=== PATIENT | female | born 1995 | race Caucasian/White ===

== ENCOUNTER → 2017-05-02 | Outpatient (CLI) | payer OTHER | END | disposition home or self-care (01) | LOC: C.LABSPEC 17:31 | PROVIDERS: ATTEND Obstetrics & Gynecology | DX: Z11.3 Encounter for screening for infections with a predominantly sexual mode of transmission (principal) ==

== ENCOUNTER → 2017-05-02 | Outpatient (CLI) | payer OTHER | END | disposition home or self-care (01) | LOC: C.PAPS 09:31 | PROVIDERS: ATTEND Obstetrics & Gynecology | DX: Z01.419 Encounter for gynecological examination (general) (routine) without abnormal findings (principal) ==

== ENCOUNTER 2022-08-27 06:32 | Inpatient (IN) ==
[~2022-08-27 06:32] MED LIST: CITRIC ACID/SODIUM CITRATE 15 ML UDC PO SCH; ceFAZolin 2000MG 2,000 MG/15 ML SYR IV SCH
[2022-08-27] MEDS ORDERED: LACTATED RINGER'S 1,000 ML IV SCH ×2 (08:00→10:24)
--- NOTE | 2022-08-27 08:03 | History & Physical Report ---
Date of Service August 27, 2022 Assessment & Plan (1) Supervision of normal first : Plan: Admit. Labs. EFM/toco. IV. Discussed recommendation for delivery by due to breech. Reviewed consent, informed consent obtained. Will proceed to OR. (2) Breech presentation: History of Present Illness Chief Complaint: contractions Primary Care Provider: ADAM Low 27yo @ 39 04/28, contractions since earlier this morning. and Delivery Plans FOB mother with probably muscular dystrophy--FOB tested negative for that gene. covid vaccine--pfizer x 2 , recommend booster Allergies Allergy/AdvReac Type Severity Reaction Status Date / Time No Known Drug Allergies Allergy Unknown Verified 08/27/22 07:19 Home Medications Medication Instructions Recorded Confirmed Type prenat.vits,ramon,nsm-[id number]-laynf 1 tab PO DAILY 01/29/22 08/27/22 History cetirizine 10 mg tablet 10 mg PO DAILY 08/27/22 08/27/22 History Patient History Medical History (Updated 08/27/22 @ 08:03 by Sofiya Carpenter DO) Varicella vaccination Surgical History History of wisdom tooth extraction Family History Grandfather (Maternal) Pancreatic cancer Hypertension Grandmother (Maternal) Lymphoma Hypertension Grandfather (Paternal) Diabetes Mother Hypertension Denies family history of Ovarian cancer Breast cancer Colorectal cancer Social History (Updated 01/29/22 @ 14:13 by Rocio Stephens) Smoking Status: Never smoker Do You Dip or Chew Tobacco: No; Hx Alcohol Use: No Hx Substance Use: No Preferred Language: Venezuelan Communication Ability: Effective Cable Strander Required: No Beliefs That Will Affect Care: None marital status: marital status details: Yoseph Gandhi (28) [phone] Current Living Situation: Spouse Current Living Situation Comment: current occupational status: employed 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 Constitutional: WD/WN, vitals as above Respiratory: normal respiratory effort, lungs clear to auscultation no respiratory distress Cardiovascular: Rate/Rhythm: regular rate and regular rhythm Gastrointestinal (Abdomen): Inspection/Auscultation: abdomen normal to inspection Percussion/Palpation: abdomen soft; abdomen nontender Gravid. No s/s chorio or abruption. Skin: no rashes, warm and dry Psychiatric: A+Ox3, euthymic affect Results & Data Vital Signs (Past 12 Hours) Vital Signs Temp Pulse Resp BP 08/27/22 07:00 36.6 C 20 08/27/22 06:53 127 H 135/88 08/27/22 06:48 16 08/27/22 06:48 36.6 C 16 08/27/22 06:49 113 H 137/91 Code Status & VTE Plan VTE Prophylaxis Plan VTE Prophylaxis will be ordered: Yes Coding Level of Care Code None Diagnoses Supervision of normal first Z34.00 Breech presentation O32.1XX0
--- NOTE | 2022-08-27 08:04 | Anesthesiology Consultation ---
Date of Service August 27, 2022 Assessment & Plan Chart Review Chart Review: Acceptable Risk for Surgery and Patient NOT seen in Pre Admission Testing awaiting platelet count Consults Requested none History Surgery Operation Date: 08/27/22 08:15 Proposed Procedures p Section in LD - Sofiya KatzDO bhavin Height/Weight Height: 5 ft 7 in Weight: 82.554 kg Allergies Allergy/AdvReac Type Severity Reaction Status Date / Time No Known Drug Allergies Allergy Unknown Verified 08/27/22 07:19 Medications Home Medications Medication Instructions Recorded Confirmed Last Taken prenat.vits,ramon,pus-ahvs-ajptw 1 tab PO DAILY 01/29/22 08/27/22 08/26/22 08:00 cetirizine 10 mg tablet 10 mg PO DAILY 08/27/22 08/27/22 08/26/22 08:00 Active Medications Generic Name Dose Route Start Last Admin Trade Name Freq PRN Reason Stop Dose Admin Cefazolin Sodium 2,000 mg in 15 mls @ 3.75 mls/min 08/27/22 06:00 08/27/22 08:24 Ancef 2000mg IV 08/28/22 05:59 3.75 mls/min PREOP TIM Administration Protocol Lactated Ringer's 1,000 mls @ 999 mls/hr 08/27/22 08:00 08/27/22 08:00 Lr IV 08/27/22 09:00 999 mls/hr .Q1H1M TIM Administration Past Medical History Medical History Varicella vaccination Exercise / Class Metabolic Activity II 4-5 Yardwork/Stairs/Walk up hill Past Family History Family History Grandfather (Maternal) Pancreatic cancer Hypertension Grandmother (Maternal) Lymphoma Hypertension Grandfather (Paternal) Diabetes Mother Hypertension Denies family history of Ovarian cancer Breast cancer Colorectal cancer Past Surgical History Surgical History History of wisdom tooth extraction Past Anesthesia History No Hx of Anesthesia Complications and No Family Hx of Anesthesia Complications Social History Smoking Status: Never smoker Do You Dip or Chew Tobacco: No Hx Alcohol Use: No Hx Substance Use: No Physical Exam Vital Signs Last Vital Signs Temp 36.6 C 08/27/22 07:00 Pulse 127 H 08/27/22 06:53 Resp 20 08/27/22 07:00 BP 135/88 08/27/22 06:53
[2022-08-27] MEDS ORDERED: MoRPHine SULFATE PF 1 MG/ML 10 ML AMP/VIAL ONE (08:14)
[2022-08-27] MEDS ORDERED: fentaNYL citrate PF 100 MCG/2 ML VIAL ONE (08:14)
[2022-08-27] MEDS ORDERED: OXYTOCIN 10 UNITS/ML 10ML VIAL ONE (08:14)
[2022-08-27] MEDS ORDERED: ONDANSETRON INJ 2 MG/ML 2 ML VIAL ONE (08:14)
[2022-08-27] MEDS ORDERED: PHENYLEPHRINE 100MCG/ML 5ML SYR ONE (08:14)
[2022-08-27 08:28] LABS: Basophils # (auto) 0.05 K/uL (0-0.2); Basophils % (auto) 0.4 %; Hematocrit (blood only) 37.5 % (37.0-47.0); Hemoglobin 12.8 g/dl (12.0-16.0); Immature Granulocytes # (auto) 0.14 K/uL (0.01-0.20); Immature Granulocytes % (auto) 1.1 %; Lymphocytes # (auto) 1.23 K/uL (1.2-3.4); Lymphocytes % (auto) 9.4 %; Mean Corpuscular Hemoglobin 29.9 pg (25.0-34.0); Mean Corpuscular Hgb Conc 34.1 g/dL (32.0-36.0); Mean Corpuscular Volume 87.6 fL (80.0-100.0); Mean Platelet Volume 11.9 fL (9.4-12.4); Monocytes % (auto) 3.1 %; Neutrophils # (auto) 11.22 K/uL (1.40-6.50); Platelet Count 176 K/uL (130-400); RDW Coefficient of Variation 13.9 % (11.5-14.5); RDW Standard Deviation 44.1 fL (36.4-46.3); Red Blood Count 4.28 M/uL (4.20-5.40); White Blood Count 13.04 K/ul (4.8-10.8)
[2022-08-27] MEDS ORDERED: NALOXONE HCL 1 MG in SODIUM CHLORIDE 0.9% 1000ML 1,000 ML IV PRN (08:49)
[2022-08-27] MEDS ORDERED: NALBUPHINE HCL INJ 10 MG/ML AMP IV PRN (08:49)
[2022-08-27] MEDS ORDERED: NALOXONE HCL 0.08 MG in SYRINGE 1.8 ML IV PRN (08:49)
[2022-08-27] MEDS ORDERED: diphenhydrAMINE 50 MG/ML VIAL IV PRN (08:49)
[2022-08-27] MEDS ORDERED: LACTATED RINGER'S 500 ML IV PRN (08:49)
[2022-08-27] MEDS ORDERED: ONDANSETRON INJ 2 MG/ML 2 ML VIAL IV PRN ×2 (08:49→10:24)
[2022-08-27] MEDS ORDERED: MoRPHine SULFATE PF 1 MG/ML 10 ML AMP/VIAL INT SPINAL ONE (08:49)
[2022-08-27] MEDS ORDERED: MoRPHine SULFATE 2 MG/ML CARP IV PRN (08:49)
[2022-08-27] MEDS ORDERED: NALOXONE HCL 0.4 MG/1 ML VIAL/CARP IV PRN (08:49)
[2022-08-27] MEDS ORDERED: ePHEDrine sulfate 50 MG/ML AMP IV PRN (08:49)
[2022-08-27] MEDS ORDERED: SODIUM CHLORIDE 0.9% 1000ML 1,000 ML IV SCH (09:00)
[2022-08-27] MEDS ORDERED: NO NARCOTICS OR SEDATIVES SCH (09:00)
[2022-08-27] MEDS ORDERED: DC INTRASPINAL MORPHINE SCH (09:00)
--- NOTE | 2022-08-27 09:48 | Anesthesiology Progress Note ---
Date of Service August 27, 2022 Anesthesia Post Procedure Vital Signs Vital Signs: Temp Pulse Resp BP Pulse Ox 08/27/22 07:00 36.6 C 20 08/27/22 09:43 100 08/27/22 09:43 101 H 08/27/22 09:44 105 H 08/27/22 09:44 136/97 08/27/22 06:53 127 H 135/88 08/27/22 06:48 16 08/27/22 06:48 36.6 C 16 08/27/22 06:49 113 H 137/91 Transfer of Care Handoff Completed per policy Notes Mental Status: alert / awake / arousable and participated in evaluation Patient Amnestic to Procedure: No Nausea / Vomiting: adequately controlled Pain: adequately controlled Airway Patency, RR, SpO2: stable & adequate BP & HR: stable & adequate Hydration State: stable & adequate Neuraxial Anesthesia: was administered and sensory block is resolving Anesthetic Complications: no major complications apparent and Pt Satisfied with anesthetic care
--- NOTE | 2022-08-27 09:53 | Operative Report ---
PG Post Operative Report Pre & Post Diagnosis Operation Date: 08/27/22 08:30 Pre-Op Diagnosis: PRIMARY SECTION BREECH PRESENTATION IN LABOR Post-Op Diagnosis: PRIMARY SECTION BREECH PRESENTATION IN LABOR I identified the patient and participated in the time-out.: Yes Procedure Operation Date: 08/27/22 08:30 Actual Procedures Primary low transverse Section in LD; delivery of live female at 0857 - Sofiya Carpenter DO Surgeon Sofiya Carpenter DO Robotic Toy Inventor Aaron Diane MD Estimated Blood Loss 500 Findings Consistent with Post-Op Diagnosis Viable female , Ketan breech position, Apgars 8/9. Weight 7lbs 0oz. Normal appearing uterus, fallopian tubes, ovaries. Specimens placenta, cord blood, cord blood for karyotype Drains tay clear yellow Anesthesia Type Spinal Complications none Disposition Accompanied Patient To Recovery: No Disposition: L&D Indications 27yo @ 39 1, spontaneous labor, was found to be breech presentation on arrival. Description of Procedure The patient was seen in her labor and delivery room, risks benefits and alternatives to surgery were reviewed. Informed consent obtained. Questions were answered. She was taken to the operating room, spinal anesthesia was administered. She was then prepared and draped in the usual sterile fashion in the supine position with a leftward tilt. Timeout was confirmed. A Pfannenstiel skin incision was made with a scalpel, and carried through to the underlying layer of fascia. Fascia was nicked at midline, and this incision was extended bilaterally. The superior aspect of the fascial incision was grasped with Karrie clamps x2, elevated off the underlying rectus abdominis muscles, and dissected sharply and bluntly. In similar fashion, the inferior aspect of the fascial incision was dissected. The rectus abdominis muscles were , and the peritoneum was entered bluntly digitally. This was extended bilaterally. The bladder flap was taken down carefully using Metzenbaum scissors. Using a new scalpel, a low transverse uterine incision was created. Clear amniotic fluid noted. The was delivered from a breech presentation. One leg delivered, followed by other leg, then abdomen. Bilateral arms swept medially for delivery, and head delivered easily. Spontaneous cry on the field. The cord was doubly clamped and cut, and the was handed off to the waiting assembly cleaner. A segment was retained for cord gases. Cord blood was obtained - 2 samples, one standard sample, one for karyotype testing. The placenta was delivered spontaneously intact. The uterus was exteriorized, and cleared of all clots and debris. The hysterotomy incision was reapproximated using 0 Vicryl in a running locked stitch. A second layer of the same suture was used to imbricate the incision. Posterior uterus was evaluated and normal. The uterus was returned to the abdomen, and gutters were cleared of clots and debris. Excellent hemostasis was observed. The fascial incision was reapproximated using 0 Vicryl in a running stitch. The subcutaneous tissue was irrigated, and reapproximated using 2-0 plain gut in a running stitch. The skin was reapproximated using 4-0 Vicryl in a running subcuticular stitch. Steri-Strips and a bandage were applied. The patient tolerated the procedure well, and will be taken to the recovery area in stable and good condition. I attest to the content of the Intraoperative Record and any orders documented therein. Any exceptions are noted below. OB Procedure Charges 53930
[2022-08-27] MEDS ORDERED: BENZOCAINE 20% AER SPR 82.5 GM CAN EXT PRN (10:24)
[2022-08-27] MEDS ORDERED: HYDROCORTISONE ACETATE 25 MG SUPP PR PRN (10:24)
[2022-08-27] MEDS ORDERED: DIPHTHERIA/TETANUS/PERTUSSIS 0.5mL SYR/VIAL (Age 7+yrs) IM ONE (10:24)
[2022-08-27] MEDS ORDERED: SENNA 8.6 MG TAB PO PRN (10:24)
[2022-08-27] MEDS ORDERED: MAGNESIUM HYDROXIDE SUSP 30 ML UDC PO PRN (10:24)
[2022-08-27] MEDS: OXYTOCIN 30 UNITS in LACTATED RINGER'S 1,000 ML IV SCH ×2 (11:52→20:42)
[2022-08-27] MEDS: SIMETHICONE 80 MG CHEW PO SCH ×3 (12:30→20:42)
[2022-08-27] MEDS ORDERED: PROMETHAZINE HCL 12.5 MG in SODIUM CHLORIDE 0.9% 50 ML IV PRN (13:52)
[2022-08-27] MEDS: KETOROLAC 30 MG/ML VIAL IV PRN (14:14)
[2022-08-27] MEDS: DOCUSATE SODIUM 100 MG CAP PO SCH (20:42)
[2022-08-28] MEDS: KETOROLAC 30 MG/ML VIAL IV PRN (02:35)
[2022-08-28] MEDS ORDERED: diphenhydrAMINE Capsule 25 MG CAP PO PRN (02:50)
[2022-08-28] MEDS ORDERED: PROMETHAZINE HCL 25 MG in SODIUM CHLORIDE 0.9% 50 ML IV PRN (02:50)
[2022-08-28] MEDS ORDERED: diphenhydrAMINE 50 MG/ML VIAL IV PRN (02:50)
[2022-08-28] MEDS ORDERED: KETOROLAC 30 MG/ML VIAL IV PRN (02:50)
--- NOTE | 2022-08-28 06:23 | Obstetrical Progress Note ---
Date of Service August 28, 2022 Assessment & Plan (1) Breech presentation: (2) Supervision of normal first : Plan Ita is a 27 y/o female who is POD #1 following LTCS delivery at 39 weeks. -Meeting all milestones -Vital signs reviewed and WNL, hemoglobin 11.2 this a.m. -Encourage ambulation -Advance diet as tolerated -Follow up in 6 weeks for appointment -Continue routine care Admission and Anticipated Discharge Date Admission Date: August 27, 2022 Supervising Physician Co-Signing Physician Notes Resident Physician Supervision Note: I interviewed and examined the patient. Discussed with Dr. Garcia and agree with findings and plan as documented in the note. Any exceptions or clarifications are listed here: POD#1 doing well. Increase diet, ambulation today. Documented By: Sofiya Carpenter, DO Subjective Ita is a 27 y/o female who is POD #1 following LTCS delivery at 39 weeks. She reports feeling well overall this morning. Notes some pain at surgical site and abdominal cramping but pain well managed on analgesics. Voiding without issue since removal of tay catheter this morning. Tolerating some crackers overnight and hoping to eat breakfast this morning. Has been able to ambulate some. Endorses passing gas. Has some persistent lochia with some improvement this morning. Review of Systems Constitutional: no fever, no chills and no sweats Respiratory: no cough, no dyspnea and no wheezing Cardiovascular: no chest pain, no palpitations and no calf pain Genitourinary: no dysuria Neurologic: no headache(s) Physical Exam Constitutional: WD/WN, vitals as above no acute distress Respiratory: no respiratory distress Auscultation: lungs clear to auscultation bilaterally; no rales, no rhonchi and no wheezes Cardiovascular: RRR, no murmur, no edema Extremities: no calf tenderness and no edema Negative José's sign bilaterally. Gastrointestinal (Abdomen): Inspection/Auscultation: normal bowel sounds Genitourinary: Uterine fundus firm, palpable below the umbilicus. Surgical incision site clean and healing appropriately. Results & Data Vital Signs (Past 12 Hours) Vital Signs Temp Pulse Resp BP Pulse Ox O2 Del Method 08/28/22 03:15 37.0 C 71 18 124/73 Room Air 08/28/22 02:00 18 93 08/28/22 01:00 16 93 08/28/22 00:00 18 93 08/27/22 23:00 18 97 08/27/22 23:00 37.1 C 96 H 18 146/88 H 97 Room Air 08/27/22 22:00 18 93 08/27/22 21:00 18 99 08/27/22 20:00 18 96 08/27/22 19:35 18 96 08/27/22 19:35 Room Air 08/27/22 19:35 36.9 C 94 H 18 125/75 96 Room Air 08/27/22 18:35 18 99 Resident Activity Tracking Resident Involvement: Resident Care Provided Care Provided: OB Delivery
[2022-08-28 06:37] LABS: Basophils # (auto) 0.04 K/uL (0-0.2); Basophils % (auto) 0.3 %; Eosinophils # (auto) 0.02 K/uL (0-0.50); Eosinophils % (auto) 0.1 %; Hemoglobin 11.2 g/dl (12.0-16.0); Immature Granulocytes # (auto) 0.16 K/uL (0.01-0.20); Immature Granulocytes % (auto) 1.1 %; Lymphocytes # (auto) 1.13 K/uL (1.2-3.4); Lymphocytes % (auto) 7.9 %; Mean Corpuscular Hemoglobin 29.4 pg (25.0-34.0); Mean Corpuscular Hgb Conc 33.9 g/dL (32.0-36.0); Mean Corpuscular Volume 86.6 fL (80.0-100.0); Mean Platelet Volume 12.1 fL (9.4-12.4); Monocytes # (auto) 0.58 K/uL (0.11-0.59); Neutrophils # (auto) 12.43 K/uL (1.40-6.50); Neutrophils % (auto) 86.6 %; Platelet Count 146 K/uL (130-400); RDW Coefficient of Variation 14.3 % (11.5-14.5); Red Blood Count 3.81 M/uL (4.20-5.40); White Blood Count 14.36 K/ul (4.8-10.8)
[2022-08-28] MEDS: IBUPROFEN 600 MG TAB PO PRN ×4 (08:39→21:05)
[2022-08-28] MEDS: oxyCODONE/ACETAMINOPHEN 5mg/325mg TAB PO PRN ×4 (08:40→21:04)
[2022-08-28] MEDS: DOCUSATE SODIUM 100 MG CAP PO SCH ×2 (08:40→21:05)
[2022-08-28] MEDS: FERROUS SULFATE 325 MG TAB PO SCH ×2 (08:40→09:13)
[2022-08-28] MEDS: PRENATAL VITAMIN 1 TAB PO SCH (08:40)
[2022-08-28] MEDS: SIMETHICONE 80 MG CHEW PO SCH ×4 (08:40→21:05)
[2022-08-28] MEDS ORDERED: Nursing to Pharmacy Communication SCH (09:15)
[2022-08-28] MEDS ORDERED: ONDANSETRON 4 MG OD TAB PO PRN (18:44)
[2022-08-28] MEDS ORDERED: PROMETHAZINE HCL 25 MG TAB PO PRN (18:44)
[2022-08-28] MEDS ORDERED: bisacodyL 5 MG TABEC PO SCH (20:00)
[2022-08-28] MEDS ORDERED: FERROUS SULFATE 325 MG TAB PO SCH (21:00)
[2022-08-29] MEDS: oxyCODONE/ACETAMINOPHEN 5mg/325mg TAB PO PRN ×2 (05:49→10:25)
[2022-08-29] MEDS: IBUPROFEN 600 MG TAB PO PRN ×2 (05:49→10:26)
[2022-08-29 06:23] LABS: Hematocrit (blood only) 33.8 % (37.0-47.0); Hemoglobin 11.1 g/dl (12.0-16.0)
--- NOTE | 2022-08-29 06:37 | Obstetrical Progress Note ---
Date of Service August 29, 2022 Assessment & Plan (1) Breech presentation: (2) Supervision of normal first : Plan tIa is a 27 y/o female who is POD #2 following LTCS delivery at 39 weeks. -Meeting all milestones -Vital signs reviewed and WNL, hemoglobin stable -Encourage ambulation -Follow up in 6 weeks for appointment -Continue routine care -Plan for discharge today Admission and Anticipated Discharge Date Admission Date: August 27, 2022 Supervising Physician Co-Signing Physician Notes Patient seen with resident and agree with the above findings and plan. Stable for discharge. Subjective Ita is a 27 y/o female who is POD #2 following LTCS delivery at 39 weeks. She reports feeling well overall this morning. Notes some pain at surgical site and abdominal cramping but pain well managed on analgesics- notes that pain is worse when the Percocet wears off. Voiding without issue. Tolerating meals and has been able to ambulate some. Endorses passing gas. Has some persistent lochia with some improvement this morning. Review of Systems Constitutional: no fever, no chills and no sweats Respiratory: no cough, no dyspnea and no wheezing Cardiovascular: no chest pain, no palpitations and no calf pain Genitourinary: no dysuria Neurologic: no headache(s) Physical Exam Constitutional: WD/WN, vitals as above no acute distress Eyes: Anicteric sclerae Respiratory: no respiratory distress Good aeration Cardiovascular: Extremities: no edema Normal heart rate, limbs well perfused. Gastrointestinal (Abdomen): Inspection/Auscultation: normal bowel sounds Skin: no rashes, warm and dry Genitourinary: Uterine fundus firm, palpable below umbilicus. Surgical incision site clean and healing appropriately. Results & Data Vital Signs (Past 12 Hours) Vital Signs Temp Pulse Resp BP Pulse Ox O2 Del Method 08/29/22 00:00 Room Air 08/29/22 00:00 36.8 C 92 H 16 121/75 96 Room Air 08/28/22 20:00 36.8 C 93 H 18 118/80 96 Room Air Resident Activity Tracking Resident Involvement: Resident Care Provided Care Provided: OB Delivery
[2022-08-29] MEDS: DOCUSATE SODIUM 100 MG CAP PO SCH (08:38)
[2022-08-29] MEDS: PRENATAL VITAMIN 1 TAB PO SCH (08:38)
[2022-08-29] MEDS: SIMETHICONE 80 MG CHEW PO SCH ×2 (08:38→12:39)
[2022-08-29] MEDS ORDERED: bisacodyL 10 MG SUPP PR PRN (09:40)
== END 2022-08-29 13:14 | disposition home or self-care (01) | DRG 788 ==
LOC: OPB 06:32 → 4S1 06:34 → 4E2 12:52